=== PATIENT | male | born 1975 | race Caucasian/White ===

== ENCOUNTER 2017-08-14 20:54 | Emergency (ER) | payer SELFPAY ==
[~2017-08-14 20:54] MED LIST: Sodium Chloride 0.9% 1,000 ML BAG ONE
[2017-08-14] MEDS ORDERED: Ondansetron HCl/PF 4 MG/2 ML Vial ONE (21:17)
[2017-08-14 21:45] LABS: #Basophils 0.1 thou/uL (0.0-0.2); #Eosinphils 0.1 thou/uL (0.0-0.7); #Lymphocytes 0.7 thou/uL (1.20-3.40); #Monocytes 0.6 thou/uL (0.11-0.59); #Neutrophils 12.1 thou/uL (1.40-6.50); %Basophils 0.7 % (0.0-1.0); %Eosinophils 0.7 % (0.0-10.0); %Lymphocytes 5.3 % (21.0-51.0); %Monocytes 4.4 % (0.0-10.0); %Neutrophils 88.9 % (42.0-75.0); Hemoglobin 15.5 g/dL (14.0-18.0); Mean Corpuscular HGB CONC 33.4 g/dL (32.0-36.0); Mean Corpuscular Hemoglobin 29.4 pg (27.0-31.0); Mean Platelet Volume 8.9 fL (7.4-10.4); Platelet Count 267 thou/uL (130-400); RBC Distribution Width 12.2 % (11.5-14.5); Red Blood Cell (RBC) Count 5.29 mill/uL (4.70-6.10); White Blood Cell (WBC) Count 13.6 thou/uL (4.8-10.8)
[2017-08-14 21:57] LABS: ALT (SGPT) 24 U/L (8-55); AST (SGOT) 20 U/L (5-34); Albumin 4.6 g/dL (3.5-5.0); Alkaline Phosphatase 98 U/L (40-150); Anion Gap 15 mmol/L (10-20); BUN (Urea Nitrogen) 18 mg/dL (8.9-20.6); Bilirubin, Total 0.6 mg/dL (0.2-1.2); Calc. Creatinine Clearance 0 mL/min (70-130); Calcium 9.6 mg/dL (7.8-10.44); Carbon Dioxide 27 mmol/L (22-29); Chloride 102 mmol/L (98-107); Estimated GFR-MDRD 81; Globulin 2.9 g/dL (2.4-3.5); Glucose 106 mg/dL (70-105); Potassium 4.4 mmol/L (3.5-5.1); Protein, Total 7.5 g/dL (6.0-8.3); Sodium 140 mmol/L (136-145)
[2017-08-14 22:41] LABS: Bilirubin Negative (Negative); Blood, Urine Negative (Negative); Clarity Clear (Clear); Glucose, Urine (Dipstick) Negative (Negative); Leukocyte Negative (Negative); Nitrite Negative (Negative); Protein, Urine (Dipstick) Negative (Neg-Trace); Specific Gravity, Urine 1.015 (1.005-1.030)
[2017-08-14 22:43] LABS: pH, Urine Greater/Equal 9.0 (5.0-9.0)
== END 2017-08-14 23:13 | disposition home or self-care (01) ==
LOC: MADERS 20:54
DX: R11.2 Nausea with vomiting, unspecified (principal)
CPT/HCPCS: 80053; 81003; 85025; 96361; 96374; J2405; J7050

== ENCOUNTER 2019-08-05 08:34 | Emergency (ER) | payer SELFPAY | END 2019-08-05 09:05 | disposition home or self-care (01) | LOC: MADERS 08:34 | DX: R51 Headache (principal) | CPT/HCPCS: 99283 ==